=== PATIENT | female | born 1945 | race Caucasian/White ===

== ENCOUNTER 2024-02-24 13:41 | Emergency (ER) | payer BC ==
[~2024-02-24] VITALS: Ht 162.6 cm; Wt 84.0 kg
[2024-02-24 13:42] VITALS: O2SAT 99
[2024-02-24 14:52] LABS: BASOPHILS % 0.6 % (0.0-2.0); EOSINOPHILS % 2.2 % (0.0-5.0); HEMATOCRIT. 38.9 % (36.0-48.0); HEMOGLOBIN. 12.7 g/dL (12.0-16.0); LYMPHOCYTES % 19.6 % (20.0-50.0); MEAN CORPUSCULAR HEMOGLOBIN 27.9 pg (28.0-32.0); MEAN CORPUSCULAR HGB CONC 32.8 g/dL (31.0-37.0); MEAN CORPUSCULAR VOLUME 85.2 fL (81.0-99.0); MEAN PLATELET VOLUME 9.7 fl (7.4-10.4); MONOCYTES % 6.4 % (2.0-8.0); NEUTROPHILS % 71.2 % (40.0-76.0); PLATELET 160 x1000/uL (130-400); RED BLOOD CELL COUNT 4.56 mill/uL (4.2-5.4); RED CELL DISTRIBUTION WIDTH 13.8 % (11.6-14.6); WHITE BLOOD COUNT 4.9 x1000/uL (4.5-11.0)
[2024-02-24 15:03] LABS: CHLORIDE 111 mEq/L (98-107); SODIUM 143 mEq/L (136-145)
[2024-02-24 15:04] LABS: CARBON DIOXIDE 26 mEq/L (21-32)
[2024-02-24 15:05] LABS: CALCIUM 9.3 mg/dL (8.7-10.4)
[2024-02-24 15:09] LABS: CREATININE 0.7 mg/dL (0.6-1.0); GLUCOSE 114 mg/dL (70-105); UREA NITROGEN BLOOD 11 mg/dL (9-23)
[2024-02-24 15:10] LABS: TROPONIN I HIGH SENSITIVITY < 4 ng/L (3.0-34)
[2024-02-24 16:12] VITALS: BP 117/58; PULSE 67; RESP 20; TEMP 98.3
== END 2024-02-24 17:22 | disposition left against medical advice (07) ==
LOC: ER 13:41 → CANBEDREQ 02-26 20:54
DX: R07.89 Other chest pain (principal); I11.0 Hypertensive heart disease with heart failure; I50.9 Heart failure, unspecified
CPT/HCPCS: 36415; 71045; 80048; 83880; 84484; 85025; 93005; 99285